=== PATIENT | female | born 1960 | race Two or more races ===

== ENCOUNTER 2024-01-04 08:09 | Day surgery (SDC) | payer OTHER ==
[2024-01-02 12:47] LABS: Urine Bacteria None Seen /hpf (None Seen)
[2024-01-02 12:58] LABS: Basophils # (auto) 0 10 ^3/uL (0-0.2); Basophils % (auto) 0.6 % (0.0-2.0); Eosinophils # (auto) 0.2 10 ^3/uL (0-0.8); Eosinophils % (auto) 2.8 % (0.0-7.0); Hematocrit 36.6 % (36.0-46.0); Hemoglobin 12.8 g/dL (12.2-16.2); Lymphocytes # (auto) 2.4 10 ^3/uL (0.4-5.4); Lymphocytes % (auto) 42.7 % (10.0-50.0); Mean Corpuscular Hemoglobin 30.7 pg (28.0-32.0); Mean Corpuscular Hgb Conc. 35.1 g/dL (32.0-36.0); Mean Corpuscular Volume 87.4 fL (80.0-100.0); Monocytes # (auto) 0.5 10 ^3/uL (0-1.3); Monocytes % (auto) 8.5 % (0.0-12.0); Neutrophils # (auto) 2.6 10 ^3/uL (1.6-8.6); Neutrophils % (auto) 45.4 % (37.0-80.0); Nucleated Red Blood Cells % 0.1 %; Platelet Count (auto) 209 10^3/uL (140-450); Red Blood Cells 4.19 10^6/uL (4.0-5.20); Red Cell Distribution Width 14.3 % (11.8-14.3); White Blood Cell 5.7 10^3/uL (4.4-10.8)
[2024-01-02 13:00] LABS: Urine Blood Negative /uL (Negative); Urine Clarity Clear (Clear); Urine Color Light-Yellow (Yellow); Urine Protein, UAD Negative (Negative); Urine Urobilinogen Normal (Negative); Urine WBC 1 /hpf (0 - 5)
[2024-01-02 13:14] LABS: INR 1.01 (0.9-1.15); Prothrombin Time 10.7 sec (9.3-11.8)
[2024-01-02 13:31] LABS: Alanine Aminotransferase 29 U/L (7-40); Albumin 4.7 g/dL (3.2-4.8); Alkaline Phosphatase 77 U/L (46-116); Anion Gap 8 (5-15); Aspartate Aminotransferase 21 U/L (13-40); BUN/Creatinine Ratio 14.4 (10.0-20.0); Blood Urea Nitrogen 20 mg/dL (9-23); Calcium 9.9 mg/dL (8.7-10.4); Carbon Dioxide 25 mmol/L (20-30); Chloride 108 mmol/L (98-107); Glucose 93 mg/dL (74-106); Potassium 4.7 mmol/L (3.5-5.1); Sodium 141 mmol/L (136-145)
[2024-01-02 13:32] LABS: Bilirubin, Total 0.7 mg/dL (0.2-1.0); Total Protein 8.2 g/dL (5.7-8.2)
[~2024-01-04] VITALS: Ht 152.4 cm; Wt 65.8 kg
[~2024-01-04 08:09] MED LIST: ATEN-60 PO; ATOR20TA PO; LOSA100T33 PO
[2024-01-04] MEDS ORDERED: KETAMINE 50mg/ML 1ml syringe IV ONE (08:10)
[2024-01-04] MEDS ORDERED: KETOROLAC TROMETH 30 MG/ML 1ML VIAL ONE (10:04)
[2024-01-04] MEDS ORDERED: DexAMETHasone SOD PHOS 10MG/1ML VIAL INJ ONE (10:04)
[2024-01-04] MEDS ORDERED: ONDANSETRON HCL 4 MG/2 ML VIAL ONE (10:04)
[2024-01-04] MEDS ORDERED: LIDOCAINE 1% INJ PF 5ML AMP ONE (10:04)
[2024-01-04] MEDS ORDERED: fentaNYL CITRATE 100 MCG/2 ML VL ONE (10:05)
[2024-01-04] MEDS ORDERED: PROPOFOL 10 MG/ML 20 ML IV ONE ×2 (10:05→10:51)
[2024-01-04] MEDS ORDERED: GLYCOPYRROLATE 0.2 MG/ML 1ML VIAL ONE (10:05)
[2024-01-04] MEDS ORDERED: ceFAZolin 2 GM/D5W50ml 50 ML IV ONE (10:08)
[2024-01-04] MEDS: LIDOCAINE W/ EPINEPHRINE 1% 20ML VIAL ONE (10:30)
[2024-01-04] MEDS: BUPIVACAINE HCL 0.25% P/F 10 ML VIAL ONE (10:30)
[2024-01-04] MEDS ORDERED: ACE3T PO (11:00)
[2024-01-04 11:01] VITALS: TEMP 98.7; O2SAT 98
[2024-01-04 11:25] VITALS: BP 159/84; PULSE 63; RESP 17; O2SAT 99
== END 2024-01-04 11:35 | disposition home or self-care (01) ==
LOC: SUR 08:09
PROVIDERS: ATTEND Surgery
DX: C50.811 Malignant neoplasm of overlapping sites of right female breast (principal); I10 Essential (primary) hypertension; I20.9 Angina pectoris, unspecified; E66.3 Overweight; Z98.51 Tubal ligation status; Z98.890 Other specified postprocedural states; Z79.899 Other long term (current) drug therapy; Z68.28 Body mass index [BMI] 28.0-28.9, adult; Z17.0 Estrogen receptor positive status [ER+]
CPT/HCPCS: 19125; 19285; 36415; 80053; 81001; 85025; 85610; 85730; 88305; 88342; A4648; J0690; J1100; J1885; J2405; J2704; J3490; 76642; 76942